=== PATIENT | female | born 1965 | race Two or more races ===

== ENCOUNTER → 2024-12-08 | Outpatient (CLI) | payer MEDICAID, SELFPAY ==
--- NOTE | 2024-12-08 11:45 | XR_ITS ---
Examination: Screening digital mammography, bilateral Computer aided detection 3-D breast Tomosynthesis, bilateral Date and time of exam: December 08, 2024 1140 hours Compared to mammograms dating to November 24, 2020 Indication: Screening Technique: Nonmagnified MLO, CC views of the breasts to been obtained, reconstructed from 3-D Tomosynthesis images. R2 computer aided detection program utilized for evaluation of suspicious masses and/or abnormal calcifications. 3-D Tomosynthesis images obtained. Findings: The breasts are heterogeneously dense, which may obscure small masses 10 mm focal asymmetry retroareolar region left breast Grouped microcalcifications slightly inner slightly upper left breast Impression: BI-RADS Category 0: Incomplete: Need additional imaging evaluation Recommend follow-up spot magnification films of grouped microcalcifications left breast as well as spot tomographic views retroareolar region left breast Recommend left breast sonography to complete the workup
== END | disposition home or self-care (01) ==
PROVIDERS: PCP Nurse Practitioner Family; Referring Provider Nurse Practitioner Family; Visit Provider Nurse Practitioner Family
DX: Z12.31 Encounter for screening mammogram for malignant neoplasm of breast (principal); R92.8 Other abnormal and inconclusive findings on diagnostic imaging of breast; R92.0 Mammographic microcalcification found on diagnostic imaging of breast
CPT/HCPCS: 77063; 77067

== ENCOUNTER → 2025-01-14 | Outpatient (CLI) | payer MEDICAID, SELFPAY ==
--- NOTE | 2025-01-14 12:30 | XR_ITS ---
Examination: Breast ultrasound, unilateral, left complete Date and time of exam: January 14, 2025 1306 hrs. Indications: Mammogram December 08, 2024 10 mm focal asymmetry retroareolar region left breast, microcalcifications inner upper left breast Technique: Real-time pina scale ultrasonographic imaging performed left breast including all 4 quadrants as well as nipple retroareolar and axillary region. Findings: Retroareolar oval mass circumscribed 7 x 3 x 8 mm Impression: BI-RADS Category 3: Probably benign findings Recommend 1 additional 6 month left breast sonogram follow-up to document stability of retroareolar nodule described above
== END | disposition home or self-care (01) ==
LOC: CDIM 12:38
DX: N64.89 Other specified disorders of breast (principal)
CPT/HCPCS: 76641